=== PATIENT | male | born 1935 | race Caucasian/White ===

== ENCOUNTER 2016-06-25 05:52 | Emergency (ER) | payer BC, MEDICARE ==
[~2016-06-25] VITALS: Ht 180.3 cm; Wt 82.6 kg
[~2016-06-25 05:52] MED LIST: /QUIN20TA OR; ASPI81TA31 OR; ASPI81TA83 OR; CEFT500T OR; LEVO25TA2 OR; NIFE30TA2 OR; PAIN325T OR; Pradaxa OR; TERA10CA3 OR
[2016-06-25] MEDS ORDERED: LEVOPOW21 PO (06:26)
[2016-06-25] MEDS ORDERED: QUIN40TA5 PO (06:26)
[2016-06-25] MEDS ORDERED: TERA2CAP3 PO (06:26)
[2016-06-25 07:04] LABS: MICROSCOPIC INDICATED? MAN YES (NO)
[2016-06-25 07:05] LABS: BASO % 0.1 % (0.0-1.0); EOS # 0.1 K/mm3 (0.0-0.50); EOS % 1.1 % (0.0-3.0); LARGE UNSTAINED CELL # 0.1 K/mm3 (0.0-0.4); LARGE UNSTAINED CELL % 1.5 % (0.0-4.0); LYMPH # 0.9 K/mm3 (1.5-4.5); LYMPH % 14.4 % (24.0-44.0); MEAN CORPUSCULAR HEMOGLOBIN 30.5 pg (27.0-33.0); MEAN CORPUSCULAR HGB CONC 33.7 g/dl (32.0-36.5); MEAN CORPUSCULAR VOLUME 90.7 fl (80.0-96.0); MONO # 0.4 K/mm3 (0.0-0.8); MONO % 6.1 % (0.0-5.0); NEUTROPHILS # 4.5 K/mm3 (1.8-7.7); NEUTROPHILS % 76.8 % (36.0-66.0); PLATELET COUNT, AUTOMATED 286 k/mm3 (150-450); RED CELL DISTRIBUTION WIDTH 13.3 % (11.5-14.5); WHITE BLOOD COUNT 5.8 K/mm3 (4.0-10.0)
[2016-06-25 07:20] LABS: RBC, URINE TNTC /hpf (0-3); SQUAMOUS EPITHELIAL CELL URINE SMALL AMOUNT /hpf (SMALL AMT); WBC, URINE 20-30 /hpf (0-3)
[2016-06-25 07:22] LABS: BACTERIA, URINE MOD AMOUNT; MICROSCOPIC EXAM PERFORMED
[2016-06-25 07:24] LABS: CALCIUM LEVEL 8.6 MG/DL (8.8-10.2); CREATININE FOR GFR 1.36 MG/DL (0.70-1.30); GLOMERULAR FILTRATION RATE 53.5 (>35); POTASSIUM SERUM 4.2 MEQ/L (3.5-5.1)
[2016-06-25 07:39] LABS: HYALINE CAST, URINE NONE SEEN /lpf (0-1)
[2016-06-25] MEDS ORDERED: ISOVUE-370 76% 100ML VIAL (Q9967) As Ordered ONE (07:58)
--- NOTE | 2016-06-25 08:54 | REP ---
Clinical: Flank hematuria and abdominal pain with history of bladder cancer. Technique: Axial contrast enhanced images from the lung bases to the pubic symphysis using 100 ml Isovue 370 intravenous contrast material with precontrast and delayed images of the abdomen as well as coronal and sagittal re-formations. Comparison: 07/07/2011. Findings: The right kidney is severely atrophic demonstrating subcentimeter cysts and mild chronic-appearing hydronephrosis without hydroureter or obvious obstructing calculus. The left kidney demonstrates few simple appearing cysts measuring up to 2.2 cm diameter and lateral cortical scarring consistent with prior partial nephrectomy. There is no evidence for nephroureterolithiasis. Evaluation of the bladder demonstrates mass effect from enlarged prostate gland. Liver, spleen, pancreas, and bilateral adrenal glands are normal. Evidence for prior cholecystectomy. The enteric system is without obstruction or acute inflammatory process and there is evidence for partial prior sigmoid resection. Eventration / ventral hernia is again noted along the midline anterior abdominal wall. No ascites. No obvious adenopathy. No free air. Musculoskeletal structures demonstrate age-related degenerative changes. Vasculature demonstrates atherosclerotic changes without aneurysm or dissection. Lung bases demonstrate chronic changes. Impression: 1. Urinary tract system as described above with atrophic appearance to the right kidney and few left renal cysts up to 2.2 cm as well as evidence for prior partial left nephrectomy. Bladder demonstrates mass effect from enlarged prostate gland. No acute hydroureternephrosis, nephrolithiasis, or perinephric inflammatory stranding. 2. Eventration along the anterior ventral abdominal wall similar to prior examination without bowel obstruction. 3. Further chronic changes as described above. Signed by Chivo Watkins MD 06/25/2016 08:45 A
[2016-06-25] MEDS ORDERED: KEFL500C7 PO (10:06)
[2016-06-25 10:20] VITALS: BP 149/81
--- NOTE | 2016-06-25 20:06 | ECGEPIP ---
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
[2016-07-17] MEDS ORDERED: ATOR40TA PO (10:36)
[2016-07-17] MEDS ORDERED: NIFE30TA7 PO (10:41)
[2016-07-17] MEDS ORDERED: LEVO50TA5 PO (10:41)
[2016-07-17] MEDS ORDERED: PRAD150C PO (10:41)
[2016-07-17] MEDS ORDERED: ASPI1TAB PO (10:41)
== END 2016-06-25 10:25 | disposition home or self-care (01) ==
LOC: M ED 06:58
DX: R31.9 Hematuria, unspecified (principal); I48.91 Unspecified atrial fibrillation; N18.3 Chronic kidney disease, stage 3 (moderate); N28.1 Cyst of kidney, acquired; Z85.51 Personal history of malignant neoplasm of bladder; Z90.5 Acquired absence of kidney; I12.9 Hypertensive chronic kidney disease with stage 1 through stage 4 chronic kidney disease, or unspecified chronic kidney disease; E03.9 Hypothyroidism, unspecified; Z79.01 Long term (current) use of anticoagulants
CPT/HCPCS: 36415; 51703; 74178; 80048; 81000; 85025; 87088; 88108; 93005; 93041; 99285; Q9967

== ENCOUNTER → 2016-07-06 | Outpatient (REF) | payer BC, MEDICARE ==
[~2016-07-06] MED LIST changes: +KEFL500C7 PO; +LEVOPOW21 PO; +QUIN40TA5 PO; +TERA2CAP3 PO
== END ==
LOC: M SMT 16:43
PROVIDERS: ATTEND Nurse Practitioner Family
DX: R31.9 Hematuria, unspecified (principal)

== ENCOUNTER → 2016-07-14 | Outpatient (CLI) | payer BC, MEDICARE ==
[~2016-07-14] MED LIST changes: +ASPI1TAB PO; +ATOR40TA PO; +LEVO50TA5 PO; +NIFE30TA7 PO; +PRAD150C PO
--- NOTE | 2016-07-14 15:52 | REP ---
Chest two views HISTORY: bladder neoplasm Comparison: 07/08/2011 The lungs are clear. The heart is normal in size. The pulmonary vasculature is normal in appearance. The bony structure is intact. IMPRESSION: No acute disease. Signed by Ben Moyer MD 07/14/2016 03:44 P
[2016-07-14 17:13] LABS: INR 1.09
== END ==
LOC: M SMT 15:25
PROVIDERS: ATTEND Specialist
DX: Z01.818 Encounter for other preprocedural examination (principal); Z85.51 Personal history of malignant neoplasm of bladder

== ENCOUNTER → 2016-07-19 | Outpatient (CLI) | payer BC ==
[~2016-07-19] MED LIST changes: +CIPR500T3 PO; +TYLE650T35 PO
--- NOTE | 2016-07-20 07:31 | REP ---
Clinical: Stenosis . Technique: Downey scale and color Doppler evaluation using linear high frequency transducer Findings: Two-dimensional downey scale and color images demonstrate mixed atheromatous plaquing along the common carotid arteries extending to the carotid bulbs and proximal internal carotid arteries (right greater than left). Otherwise normal arterial lumen with laminar flow and no appreciable narrowing. Color Doppler interrogation demonstrates normal arterial wave patterns and velocities with mild spectral broadening. Normal flow direction is appreciated in the bilateral vertebral arteries. RIGHT (cm/s) LEFT (cm/s) ICA peak systolic velocity 40.0 44.2 ICA diastolic velocity 13.3 13.9 ECA peak systolic velocity 48.0 56.4 CCA peak systolic velocity 60.2 54.2 ICA/CCA ratio 0.67 0.82 Impression: No hemodynamically significant areas of narrowing or stenosis appreciated. Based on set standards narrowing falls within the less than 50% range. Signed by Chivo Watkins MD 07/20/2016 07:23 A
== END ==
LOC: M RAD 13:27
PROVIDERS: ATTEND Internal Medicine Cardiovascular Disease
DX: I65.23 Occlusion and stenosis of bilateral carotid arteries (principal)

== ENCOUNTER → 2016-07-21 | Outpatient (REF) | payer BC ==
[2016-07-21 13:25] LABS: ALBUMIN 3.5 GM/DL (3.2-5.2); ALBUMIN/GLOBULIN RATIO 1.17 (1.00-1.93); BILIRUBIN,DIRECT 0.2 MG/DL (0.0-0.2); BILIRUBIN,TOTAL 0.8 MG/DL (0.2-1.0); TOTAL PROTEIN 6.5 GM/DL (6.4-8.2)
== END ==
LOC: M LABDRAWC 11:41
PROVIDERS: ATTEND Internal Medicine Cardiovascular Disease
DX: I25.10 Atherosclerotic heart disease of native coronary artery without angina pectoris (principal)

== ENCOUNTER → 2016-07-25 | Day surgery (SDC) | payer BC ==
[~2016-07-25] VITALS: Ht 179.1 cm; Wt 82.0 kg
[~2016-07-25] MED LIST changes: +ACETAMINOPHEN 650MG ER TAB (TYLENOL ARTHRITIS) PO SCH; +CIPROFLOXACIN 500 MG TAB PO SCH; +CONRAY-60 60% 50ML VIAL (Q9961) As Ordered ONE; +GLYCOPYRROLATE INJ 0.2 MG/ML 2 ML VIAL As Ordered ONE; +LIDOCAINE 1% MDV 20ML VIAL SQ ONE; +LIDOCAINE 2% INJ 100 MG/5 ML SDV (FOR ANES.) As Ordered ONE; +LR 1,000 ML IV ONE; +LR 1,000 ML IV SCH; +METHYLENE BLUE 0.5% (5MG/ML) 10 ML AMP (PROVAYBLUE)(Q9968 PER 1MG) As Ordered ONE; +MIDAZOLAM INJ 2 MG/2 ML VIAL (J2250) As Ordered ONE; +NEOSTIGMINE 1MG/ML 5 ML SYRINGE (J2710) As Ordered ONE; +ONDANSETRON 4MG/2ML VIAL (J2405) As Ordered ONE; +PROPOFOL 200 MG/20 ML VIAL As Ordered ONE; +ROCURONIUM BROMIDE 50 MG/5 ML VIAL As Ordered ONE; +ePHEDrine SULFATE 25 MG/5 ML(5MG/ML) SYRINGE As Ordered ONE; +fentaNYL 100 MCG/2 ML INJECTION (J3010) As Ordered ONE; +mitoMYcin 40 MG VIAL (J9280) INTRAVESIC ONE
[2016-07-25 10:11] LABS: MEAN CORPUSCULAR HEMOGLOBIN 30.8 pg (27.0-33.0); MEAN CORPUSCULAR HGB CONC 34.4 g/dl (32.0-36.5); MEAN CORPUSCULAR VOLUME 89.5 fl (80.0-96.0); RED CELL DISTRIBUTION WIDTH 13.3 % (11.5-14.5); WHITE BLOOD COUNT 6.4 K/mm3 (4.0-10.0)
[2016-07-25] MEDS: fentaNYL 100 MCG/2 ML INJECTION (J3010) IV PRN ×4 (12:00→12:24)
--- NOTE | 2016-07-25 12:20 | REP ---
FLUOROSCOPIC GUIDANCE FOR RETROGRADE PYELOGRAM, 07/25/2016. Clinical history: Bladder carcinoma. Comparison is a CT abdomen and pelvis without and with contrast 06/25/2016. Nine images from C-arm fluoroscopy provided to Dr. Kent of the urology division are reviewed. Images 1 and 2 show ureteroscope and catheter in the proximal ureter. Contrast was injected through the catheter and the initial area with contrast seen within it is at about the S2 level over the right sacral ala. That contrast is diluted by the residual urine, dilated ureter and collecting system. Collecting system and calyces are dilated along with the renal pelvis and ureter down to S2 level in the upper pelvis. Many surgical clips are noted in the right deep pelvis from prior surgical procedures. No filling defects seen within the contrast column. The next seven images are all related to the ureteroscope and catheter into the left ureter and contrast is seen to the UVJ upward to the collecting system. The renal pelvis is not abnormally dilated. The infundibuli and calyces are without abnormal dilatation. There is no hydronephrosis. I see no persistent stricture or filling defect. Fluoroscopy time [id number]-seconds. Signed by David Moeller MD 07/25/2016 03:56 P
[2016-07-25 14:00] VITALS: BP 134/70
--- NOTE | 2016-07-27 13:07 | RO ---
DATE OF PROCEDURE: 07/25/2016 PREOPERATIVE DIAGNOSIS: Bladder tumor. POSTOPERATIVE DIAGNOSIS: Bladder tumor. FINDINGS: 3 cm right trigonal bladder tumor. PROCEDURE: Cystoscopy, plus exam under anesthesia, plus transurethral resection of bladder tumor (TURBT) plus bilateral retrograde pyelogram plus Mitomycin C instillation. SURGEON: Dr. Carlos Kent FULFILLMENT ASSOCIATE: None. ANESTHESIA: General. COMPLICATIONS: None. ESTIMATED BLOOD LOSS: N/A. 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 The patient had a history of a right ureteral distal ureterectomy plus ureteral implantation on the right side due to history of urothelial carcinoma. The patient is here for transurethral resection of bladder tumor. He has consent for cystoscopy, exam under anesthesia and transurethral resection of bladder tumor. PROCEDURE DESCRIPTION: In a patient under general anesthesia in supine modified low lithotomy position, after prepping and draping the area of concern which included the entire genitalia and abdomen, we introduced a cystoscope 21 Ukrainian in diameter with a 30 degrees lens under videoscopic guidance. The fossa navicularis, penile urethra, bulbar urethra, membranous urethra and prostatic urethra were totally normal. The prostatic urethra showed lateral lobes touching. No middle lobe. Both ureteral orifice were seen. The left ureteral orifice was seen in a normal position. The right ureteral orifice was not in a normal position and was not in the trigone. You could see it actually in the right dome of the bladder excreting clear urine. We passed a Pollack catheter and did a retrograde pyelogram of that right kidney. It was hydronephrotic due to refluxing effect. No filling defects in the ureter or in the kidney. We then proceeded to do a left retrograde pyelogram and there was no filling defects in the ureter or kidney. Neither had a normal collecting system. We then proceeded to actually visualize the tumor. It was a 3 cm right trigonal area tumor papillary in origin. There were no other tumors in the bladder. At that moment in time, we actually changed the cystoscope for a resectoscope under normal saline. We resected the tumor out and fulgurated the base of the resection. We then proceeded to actually take the chips of the bladder tumor resection with an Ellik evacuator. Once the hemostasis was cleared, we actually emptied the bladder and took the cystoscope out and placed a #20-Ukrainian Montoya catheter three way, inflated the balloon to 20 mL and plugged the third way. We injected 40 mg of mitomycin C and 20 mL inside the bladder. We actually made the patient in recovery to actually turn around 15 minutes to each side and keep the Mitomycin C inside the bladder for 2 hours. PLAN: The patient will go home today. He will have Mitomycin C instillation in the bladder for 2 hours. Once this is done, we will put the patient into gravity, the Montoya to gravity and if the Montoya returns as clear, he will be going home with antibiotic and pain medication. He will followup at [facility] [place] in about 5 days for a voiding trial. The pathology specimen as bladder tumor resection chips were sent for permanent pathology analysis. Of note, the exam under anesthesia was performed. The prostate has no lumps. There were no three-dimensional masses in the bladder or pedicles.
== END | disposition home or self-care (01) ==
LOC: M SDC 08:35
PROVIDERS: ATTEND Urology
DX: C67.0 Malignant neoplasm of trigone of bladder (principal); I48.91 Unspecified atrial fibrillation; I25.10 Atherosclerotic heart disease of native coronary artery without angina pectoris; I10 Essential (primary) hypertension; Z86.73 Personal history of transient ischemic attack (TIA), and cerebral infarction without residual deficits; E03.9 Hypothyroidism, unspecified; E78.5 Hyperlipidemia, unspecified; Z79.02 Long term (current) use of antithrombotics/antiplatelets; Z79.82 Long term (current) use of aspirin; Z79.899 Other long term (current) drug therapy; Z85.038 Personal history of other malignant neoplasm of large intestine; Z87.891 Personal history of nicotine dependence; Z92.21 Personal history of antineoplastic chemotherapy; Z88.8 Allergy status to other drugs, medicaments and biological substances
CPT/HCPCS: 36415; 51720; 52235; 76000; 85027; 88305; C2617; J0690; J2250; J2405; J2710; J3010; J9280; Q9961; Q9968

== ENCOUNTER → 2016-08-07 | Outpatient (REF) | payer BC ==
[~2016-08-07] MED LIST changes: -ACETAMINOPHEN 650MG ER TAB (TYLENOL ARTHRITIS) PO SCH; -ATOR40TA PO; +ATOR40TA75 PO; -CIPROFLOXACIN 500 MG TAB PO SCH; -CONRAY-60 60% 50ML VIAL (Q9961) As Ordered ONE; -GLYCOPYRROLATE INJ 0.2 MG/ML 2 ML VIAL As Ordered ONE; +KEFL500C17 PO; -KEFL500C7 PO; -LIDOCAINE 1% MDV 20ML VIAL SQ ONE; -LIDOCAINE 2% INJ 100 MG/5 ML SDV (FOR ANES.) As Ordered ONE; -LR 1,000 ML IV ONE; -LR 1,000 ML IV SCH; -METHYLENE BLUE 0.5% (5MG/ML) 10 ML AMP (PROVAYBLUE)(Q9968 PER 1MG) As Ordered ONE; -MIDAZOLAM INJ 2 MG/2 ML VIAL (J2250) As Ordered ONE; -NEOSTIGMINE 1MG/ML 5 ML SYRINGE (J2710) As Ordered ONE; -ONDANSETRON 4MG/2ML VIAL (J2405) As Ordered ONE; -PROPOFOL 200 MG/20 ML VIAL As Ordered ONE; +QUIN1TAB15 PO; -QUIN40TA5 PO; -ROCURONIUM BROMIDE 50 MG/5 ML VIAL As Ordered ONE; -ePHEDrine SULFATE 25 MG/5 ML(5MG/ML) SYRINGE As Ordered ONE; -fentaNYL 100 MCG/2 ML INJECTION (J3010) As Ordered ONE; -mitoMYcin 40 MG VIAL (J9280) INTRAVESIC ONE
== END ==
LOC: M SMT 12:58
PROVIDERS: ATTEND Nurse Practitioner Women's Health
DX: C67.9 Malignant neoplasm of bladder, unspecified (principal)

== ENCOUNTER → 2016-08-14 | Outpatient (REF) | payer BC, MEDICARE ==
[2016-08-14 17:58] LABS: BASO % 0.3 % (0.0-1.0); EOS # 0.4 K/mm3 (0.0-0.50); EOS % 6.4 % (0.0-3.0); LARGE UNSTAINED CELL # 0.1 K/mm3 (0.0-0.4); LARGE UNSTAINED CELL % 1.9 % (0.0-4.0); LYMPH % 15.5 % (24.0-44.0); MEAN CORPUSCULAR HEMOGLOBIN 30.3 pg (27.0-33.0); MEAN CORPUSCULAR HGB CONC 33.6 g/dl (32.0-36.5); MEAN CORPUSCULAR VOLUME 90.4 fl (80.0-96.0); MONO # 0.4 K/mm3 (0.0-0.8); MONO % 6.2 % (0.0-5.0); NEUTROPHILS # 4.5 K/mm3 (1.8-7.7); NEUTROPHILS % 69.7 % (36.0-66.0); PLATELET COUNT, AUTOMATED 357 k/mm3 (150-450); RED CELL DISTRIBUTION WIDTH 12.9 % (11.5-14.5); WHITE BLOOD COUNT 6.5 K/mm3 (4.0-10.0)
[2016-08-14 18:41] LABS: ALBUMIN 3.5 GM/DL (3.2-5.2); ALBUMIN/GLOBULIN RATIO 0.92 (1.00-1.93); BILIRUBIN,TOTAL 0.8 MG/DL (0.2-1.0); CALCIUM LEVEL 8.7 MG/DL (8.8-10.2); CREATININE FOR GFR 1.25 MG/DL (0.70-1.30); FREE T4 1.24 NG/DL (0.76-1.46); POTASSIUM SERUM 4.5 MEQ/L (3.5-5.1); TOTAL PROTEIN 7.3 GM/DL (6.4-8.2)
== END ==
LOC: M SFHCCAPE 07:39
PROVIDERS: ATTEND Physician Assistant
DX: E03.9 Hypothyroidism, unspecified (principal); I10 Essential (primary) hypertension

== ENCOUNTER → 2016-10-23 | Outpatient (REF) | payer BC, MEDICARE | LOC: M SMT 17:13 | PROVIDERS: ATTEND Urology | DX: Z85.51 Personal history of malignant neoplasm of bladder (principal) ==

== ENCOUNTER → 2017-07-09 | Outpatient (REF) | payer BC, MEDICARE | LOC: M SMT 17:04 | DX: Z08 Encounter for follow-up examination after completed treatment for malignant neoplasm (principal); Z85.51 Personal history of malignant neoplasm of bladder | CPT/HCPCS: 88108 ==

== ENCOUNTER → 2017-08-27 | Outpatient (REF) | payer BC, MEDICARE ==
[2017-08-27 17:40] LABS: FREE T4 1.14 NG/DL (0.76-1.46)
== END ==
LOC: M SFHCCAPE 10:46
DX: E03.9 Hypothyroidism, unspecified (principal)
CPT/HCPCS: 84443

== ENCOUNTER → 2017-10-09 | Outpatient (REF) | payer BC, MEDICARE | LOC: M SMT 17:30 | DX: C67.9 Malignant neoplasm of bladder, unspecified (principal) | CPT/HCPCS: 88108 ==

== ENCOUNTER → 2018-07-19 | Outpatient (REF) | payer BC, MEDICARE ==
[~2018-07-19] MED LIST changes: -/QUIN20TA OR; +ACCU1TAB2 OR; -ASPI1TAB PO; +ASPI81TA26 PO; -PRAD150C PO; +PRAD150C6 PO; -QUIN1TAB15 PO; +QUIN1TAB4 PO
== END ==
LOC: M SMT 12:49
PROVIDERS: ATTEND Urology
DX: Z85.51 Personal history of malignant neoplasm of bladder (principal)

== ENCOUNTER → 2019-07-23 | Outpatient (REF) | payer BC, MEDICARE ==
[~2019-07-23] MED LIST changes: +NIFE1TAB52 PO; -NIFE30TA7 PO
[2019-07-23 19:00] LABS: AMORPHOUS SEDIMENT LARGE (NEGATIVE); APPEARANCE, URINE TURBID (CLEAR); BACTERIA, URINE AUTO NEGATIVE (NEGATIVE); BILIRUBIN, URINE AUTO NEGATIVE (NEGATIVE); BLOOD, URINE BLOOD 1+ (NEGATIVE); COLOR, URINE YELLOW (YELLOW); GLUCOSE, URINE (UA) AUTO NEGATIVE (NEGATIVE); KETONE, URINE AUTO NEGATIVE (NEGATIVE); LEUKOCYTE ESTERASE, URINE AUTO TRACE (NEGATIVE); MUCUS, URINE SMALL (NEGATIVE); NITRITE, URINE AUTO NEGATIVE (NEGATIVE); PROTEIN, URINE AUTO NEGATIVE (NEGATIVE); RBC, URINE AUTO 0 /HPF (0-3); SPECIFIC GRAVITY URINE AUTO 1.023 (1.002-1.035); SQUAMOUS EPITHELIAL CELL UR AU 8 /HPF (0-6); UROBILINOGEN, URINE AUTO 0.2 mg/dL (0.0-2.0); WBC, URINE AUTO 0 /HPF (0-3)
== END ==
LOC: M SMT 16:45
PROVIDERS: ATTEND Nurse Practitioner Women's Health
DX: R31.0 Gross hematuria (principal)

== ENCOUNTER → 2019-07-30 | Outpatient (REF) | payer BC, MEDICARE ==
[~2019-07-30] MED LIST changes: +ACET650T61 PO; -TYLE650T35 PO
[2019-07-30 15:20] LABS: CALCIUM LEVEL 9.2 MG/DL (8.8-10.2); CREATININE FOR GFR 1.4 MG/DL (0.70-1.30); GLOMERULAR FILTRATION RATE 51.4 (>35); POTASSIUM SERUM 4.7 MEQ/L (3.5-5.1)
[2019-07-30 15:21] LABS: HEMOGLOBIN 14.2 g/dl (13.5-17.5); MEAN CORPUSCULAR HGB CONC 32.3 g/dl (32.0-36.5); MEAN CORPUSCULAR VOLUME 92.8 fl (80.0-96.0); PLATELET COUNT, AUTOMATED 279 10^3/uL (150-450); RED BLOOD COUNT 4.74 10^6/uL (4.30-6.10); WHITE BLOOD COUNT 5.9 10^3/uL (4.0-10.0)
== END ==
LOC: M LABSMT 08:35
PROVIDERS: ATTEND Nurse Practitioner Women's Health
DX: R31.0 Gross hematuria (principal)

== ENCOUNTER → 2019-07-30 | Outpatient (REF) | payer BC, MEDICARE ==
[2019-07-30 15:14] LABS: CALCIUM LEVEL 9.1 MG/DL (8.8-10.2); CHOLESTEROL RISK RATIO 3.205 (<5); CREATININE FOR GFR 1.5 MG/DL (0.70-1.30); GLOMERULAR FILTRATION RATE 47.5 (>35); POTASSIUM SERUM 4.9 MEQ/L (3.5-5.1)
[2019-07-30 15:20] LABS: HEMATOCRIT 44.2 % (42.0-52.0); HEMOGLOBIN 14.2 g/dl (13.5-17.5); MEAN CORPUSCULAR HEMOGLOBIN 29.6 pg (27.0-33.0); MEAN CORPUSCULAR HGB CONC 32.1 g/dl (32.0-36.5); MEAN CORPUSCULAR VOLUME 92.3 fl (80.0-96.0); PLATELET COUNT, AUTOMATED 291 10^3/uL (150-450); RED BLOOD COUNT 4.79 10^6/uL (4.30-6.10); WHITE BLOOD COUNT 6.1 10^3/uL (4.0-10.0)
== END ==
LOC: M LABDRAWC 11:15
PROVIDERS: ATTEND Physician Assistant
DX: I25.10 Atherosclerotic heart disease of native coronary artery without angina pectoris (principal)

== ENCOUNTER → 2019-08-20 | Outpatient (CLI) | payer BC ==
[~2019-08-20] MED LIST changes: +ISOVUE-370 76% 100ML VIAL As Ordered ONE
--- NOTE | 2019-08-20 15:46 | REP ---
REASON: Hematuria and history of bladder cancer. COMPARISON: 06/25/2016. CONTRAST: 100 mL of Isovue 370. There is no change in the lung bases. The patient is status post cholecystectomy. Pre-contrast enhanced portion of the exam shows hepatic and splenic densities to be within normal limits. There is no evidence of nephroureterolithiasis. There is no urinary or bladder calcifications. There are numerable pelvic phleboliths. The contrast-enhanced portion of the exam shows multiple left renal cysts and right renal cysts and although some of the cysts have increased in size, they are otherwise unchanged. Some of the cysts are somewhat more complex than other cysts. There is chronic left renal scarring status quo and the right kidney is markedly atrophic status quo. There are no enhancing hepatic abnormalities.. The spleen and adrenal glands are again seen to be within normal limits. There are two cysts arising from the pancreatic body which have increased slightly in size from the prior exam but are otherwise unchanged. Postop changes seen involving the sigmoid colon status quo. No free fluid or free air is seen in the abdomen or pelvis. There is prostatomegaly and corpora amylacea status quo. There is no significant change in the appearance of the abdominal aorta or periaortic regions. There is chronic calcific atherosclerotic change within the mural thrombus. No definite intra-abdominal or intrapelvic adenopathy has developed. Bone window technique throughout the exam shows the bones to be demineralized with chronic degenerative changes involving the spine, hips, and sacroiliac joints. This appears stable. Delayed imaging through the urinary bladder shows no definite abnormal focal filling defects. There is, however, potential thickening of the mucosal at the level of the left ureterovesical junction difficult to evaluate by CT and without evidence of concomitant hydroureter or hydronephrosis. The atrophic right kidney still exhibits contrast excretion. MIP reformatted 3D imaging shows partial opacification of each ureter likely secondary to peristaltic activity. No definite bladder filling defects are identified. IMPRESSION: There are findings and chronic changes as described above. There is no definite evidence of acute disease. Followup is recommended. Electronically Signed by José Miguel Brownlee DO 08/20/2019 04:11 P
== END ==
LOC: M RAD 09:20
PROVIDERS: ATTEND Nurse Practitioner Women's Health
DX: R31.0 Gross hematuria (principal); Z85.51 Personal history of malignant neoplasm of bladder
CPT/HCPCS: 74178; Q9967

== ENCOUNTER → 2019-09-04 | Outpatient (REF) | payer BC ==
[~2019-09-04] MED LIST changes: -ISOVUE-370 76% 100ML VIAL As Ordered ONE
[2019-10-06 08:29] LABS: HEMATOCRIT 42.9 % (42.0-52.0); HEMOGLOBIN 13.7 g/dl (13.5-17.5); MEAN CORPUSCULAR HEMOGLOBIN 29.8 pg (27.0-33.0); MEAN CORPUSCULAR HGB CONC 31.9 g/dl (32.0-36.5); MEAN CORPUSCULAR VOLUME 93.3 fl (80.0-96.0); PLATELET COUNT, AUTOMATED 287 10^3/uL (150-450); WHITE BLOOD COUNT 7.3 10^3/uL (4.0-10.0)
[2019-10-11 11:25] LABS: BLOOD UREA NITROGEN 19 MG/DL (7-18); CREATININE FOR GFR 1.16 MG/DL (0.70-1.30); GLUCOSE, FASTING 100 MG/DL (70-100)
[2019-10-11 11:26] LABS: CALCIUM LEVEL 8.8 MG/DL (8.8-10.2); CARBON DIOXIDE LEVEL 27 MEQ/L (21-32); CHLORIDE LEVEL 109 MEQ/L (98-107); GLOMERULAR FILTRATION RATE > 60.0 (>35); POTASSIUM SERUM 4.5 MEQ/L (3.5-5.1); SODIUM LEVEL 141 MEQ/L (136-145)
== END ==
LOC: M SFHCCLAY 18:36
PROVIDERS: ATTEND Family Medicine
DX: C67.9 Malignant neoplasm of bladder, unspecified (principal)

== ENCOUNTER 2019-09-10 08:15 | Day surgery (SDC) | payer BC ==
[2019-09-10] MEDS ORDERED: BACTRIM 160MG/800MG DS TAB ONE (08:16)
[2019-09-10] MEDS ORDERED: ceFAZolin 2 GM/D5W 50 ML IV BAG (J0690 PER 500MG) As Ordered ONE (09:11)
[2019-09-10] MEDS ORDERED: propofoL 200 MG/20 ML VIAL As Ordered ONE (09:18)
[2019-09-10] MEDS ORDERED: fentaNYL 250 MCG/5 ML INJECTION (J3010) As Ordered ONE (09:18)
[2019-09-10] MEDS ORDERED: ONDANSETRON 4MG/2ML VIAL As Ordered ONE (09:18)
[2019-09-10] MEDS ORDERED: LIDOCAINE 2% 100MG/5ML SDV (FOR ANES.) As Ordered ONE (09:18)
[2019-09-10] MEDS ORDERED: dexameTHASONE 4 MG/ML 1ML VIAL (J1100 PER 1MG) As Ordered ONE (09:18)
[2019-09-10] MEDS ORDERED: ROCURONIUM BROMIDE 50 MG/5 ML VIAL As Ordered ONE (09:18)
[2019-09-10] MEDS ORDERED: MIDAZOLAM INJ 2MG/2ML VIAL (J2250 PER 1MG) As Ordered ONE (09:18)
[2019-09-10] MEDS ORDERED: SUGAMMADEX SODIUM 500 MG/5 ML VIAL (BRIDION) As Ordered ONE (10:57)
--- NOTE | 2019-11-13 13:02 | RO ---
DATE OF OPERATION: 09/10/2019 PREOPERATIVE DIAGNOSIS: Bladder tumor. POSTOPERATIVE DIAGNOSES: Bladder tumor. PROCEDURE: Transurethral resection of bladder tumor. SURGEON: Dr. Jesus Rose. ANESTHESIA: General. INDICATIONS FOR OPERATION: This is an 83-year-old white male who was found in the office on surveillance cystoscopy to have a tumor recurrence. He was brought to the operating room for resection. DESCRIPTION OF OPERATION: The patient was anesthetized with general anesthesia after being placed on the table in the supine position. He was then placed in the lithotomy position, prepped with Betadine paint, draped in an aseptic manner, and timeout was performed. A 26-Latvian continuous flow resectoscope was then inserted into the meatus and advanced under direct vision with a 30 lens to the bladder. He was found to have bladder tumors on the posterior and right lateral velázquez. These were then resected and fulgurated with the loop element. The rest of the bladder was carefully examined and no further tumor was identified. The bladder was then drained, resectoscope was removed, and the patient was awakened and sent to the recovery room in stable condition, having tolerated the procedure well. HAMILTON
== END 2019-09-10 09:30 | disposition home or self-care (01) ==
LOC: M SDC 08:15
PROVIDERS: ATTEND Urology
DX: C67.4 Malignant neoplasm of posterior wall of bladder (principal); I10 Essential (primary) hypertension; Z86.73 Personal history of transient ischemic attack (TIA), and cerebral infarction without residual deficits; I48.91 Unspecified atrial fibrillation; G47.30 Sleep apnea, unspecified; E78.00 Pure hypercholesterolemia, unspecified; E03.9 Hypothyroidism, unspecified; Z79.899 Other long term (current) drug therapy; I25.10 Atherosclerotic heart disease of native coronary artery without angina pectoris
CPT/HCPCS: 52001; 52224; 88305; J0690; J1100; J2250; J2405; J3010

== ENCOUNTER 2019-09-13 10:44 | Observation (INO) | payer BC ==
[2019-09-13] MEDS ORDERED: ceFAZolin 2 GM/D5W 50 ML IV BAG (J0690 PER 500MG) As Ordered ONE (14:22)
[2019-09-13] MEDS ORDERED: ACETAMINOPHEN 1000MG 100ML IV BTL (OFIRMEV) (J0131 PER 10MG) As Ordered ONE (14:33)
[2019-09-13] MEDS ORDERED: dexameTHASONE 4 MG/ML 1ML VIAL (J1100 PER 1MG) As Ordered ONE (14:33)
[2019-09-13] MEDS ORDERED: LIDOCAINE 2% 100MG/5ML SDV (FOR ANES.) As Ordered ONE (14:33)
[2019-09-13] MEDS ORDERED: ONDANSETRON 4MG/2ML VIAL As Ordered ONE (14:33)
[2019-09-13] MEDS ORDERED: fentaNYL 100 MCG/2 ML INJECTION (J3010) As Ordered ONE (14:33)
[2019-09-13] MEDS ORDERED: propofoL 200 MG/20 ML VIAL As Ordered ONE (14:33)
[2019-09-13] MEDS ORDERED: ROCURONIUM BROMIDE 50 MG/5 ML VIAL As Ordered ONE (14:33)
[2019-09-13] MEDS ORDERED: SUCCINYLCHOLINE 100 MG/5 ML SYRINGE (J0330) As Ordered ONE (14:33)
[2019-10-30 11:55] LABS: INR 1.26; PARTIAL THROMBOPLASTIN TIME 29.3 SECONDS (24.2-38.5)
[2019-10-30 12:07] LABS: APPEARANCE, URINE MANUAL TURBID (CLEAR); BILIRUBIN, URINE MANUAL OBSCURED (NEGATIVE); BLOOD URINE MANUAL POSITIVE (NEGATIVE); COLOR, URINE MANUAL BROWN (YELLOW); GLUCOSE, URINE (UA) MANUAL NEGATIVE (NEGATIVE); KETONE, URINE MANUAL OBSCURED mg/dL (NEGATIVE); LEUKOCYTE ESTERASE, URINE MAN POSITIVE (NEGATIVE); NITRITE, URINE MANUAL OBSCURED (NEGATIVE); PROTEIN, URINE MANUAL 3+ mg/dL (NEGATIVE); UROBILINOGEN, URINE MANUAL OBSCURED mg/dl (NORMAL)
[2019-10-30 12:08] LABS: BACTERIA, URINE SMALL AMOUNT; HYALINE CAST, URINE NONE SEEN /lpf (0-1); RBC, URINE TNTC /hpf (0-3); SQUAMOUS EPITHELIAL CELL URINE NONE SEEN /hpf (SMALL AMT); WBC, URINE 20-30 /hpf (0-3)
[2019-10-30 17:17] LABS: BASO % 0.2 % (0.0-1.0); EOS % 0.7 % (0.0-3.0); HEMATOCRIT 43.4 % (42.0-52.0); HEMOGLOBIN 14.5 g/dl (13.5-17.5); LYMPH # 0.7 10^3/uL (1.5-5.0); LYMPH % 11.7 % (24.0-44.0); MEAN CORPUSCULAR HEMOGLOBIN 30.3 pg (27.0-33.0); MEAN CORPUSCULAR HGB CONC 33.4 g/dl (32.0-36.5); MEAN CORPUSCULAR VOLUME 90.6 fl (80.0-96.0); MONO # 0.5 10^3/uL (0.0-0.8); NEUTROPHILS # 4.4 10^3/uL (1.5-8.5); PLATELET COUNT, AUTOMATED 298 10^3/uL (150-450); RED BLOOD COUNT 4.79 10^6/uL (4.30-6.10); WHITE BLOOD COUNT 5.7 10^3/uL (4.0-10.0)
--- NOTE | 2019-11-13 13:04 | RO ---
DATE OF OPERATION: 09/13/2019 PREOPERATIVE DIAGNOSIS: Clot retention and bladder bleeding. POSTOPERATIVE DIAGNOSIS: Clot retention and bladder bleeding. PROCEDURE: Cystoscopy with evacuation of clots and fulguration of tumor site. SURGEON: Dr. Jesus Rose ANESTHESIA: General. INDICATIONS FOR PROCEDURE: This is an 84-year-old white male who had a bladder tumor resected three days ago. He states that he started bleeding last night after having restarted his blood thinners two days prior. Because of this, he was brought to the operating for evacuation of clots and fulguration. DESCRIPTION OF PROCEDURE: The patient was anesthetized with general anesthesia, placed in the lithotomy position, prepped with Betadine pain, and draped in an aseptic manner. A time-out was then performed. A 22-Yoruba cystoscope was then inserted into the meatus and advanced under direct vision of a 30-degree lens to the bladder, where the patient was found to have numerous clots. These were then evacuated with the [employer] evacuator and a Yonathan syringe. When the clots had been extracted, the tumor sites could be evaluated. He had one active bleeder on the posterior wall tumor site. Both tumor sites were then fulgurated with the Bugbee cautery and irrigation showed the patient had no further bleeding and the fluid in the bladder was clear. The bladder was then drained, cystoscope was removed, and the patient was awakened and sent to the recovery room in stable condition having tolerated the procedure well. HAMILTON
[2019-12-02 20:27] LABS: ALBUMIN 3.4 GM/DL (3.2-5.2); BILIRUBIN,TOTAL 0.8 MG/DL (0.2-1.0); CREATININE FOR GFR 1.37 MG/DL (0.70-1.30); GLOMERULAR FILTRATION RATE 52.7 (>35); POTASSIUM SERUM 4.1 MEQ/L (3.5-5.1); TOTAL PROTEIN 7.1 GM/DL (6.4-8.2)
== END 2019-09-13 21:50 | disposition home or self-care (01) ==
LOC: M ED 10:44 → M MS5PR 15:08
PROVIDERS: ADMIT Urology; ATTEND Urology
DX: N32.89 Other specified disorders of bladder (principal); N99.820 Postprocedural hemorrhage of a genitourinary system organ or structure following a genitourinary system procedure; C67.4 Malignant neoplasm of posterior wall of bladder; I95.1 Orthostatic hypotension; I48.91 Unspecified atrial fibrillation; I10 Essential (primary) hypertension; E07.9 Disorder of thyroid, unspecified; R25.1 Tremor, unspecified; Z79.899 Other long term (current) drug therapy; Z79.01 Long term (current) use of anticoagulants; Z79.82 Long term (current) use of aspirin; Z85.038 Personal history of other malignant neoplasm of large intestine
CPT/HCPCS: 52001; 52224; 80053; 81000; 85025; 85610; 85730; 86850; 86900; 86901; 87086; 96360; 99284; J0131; J0330; J0690; J1100; J2405; J3010; U0002

== ENCOUNTER → 2019-09-29 | Outpatient (REF) | payer BC ==
[2019-09-29 18:01] LABS: FREE T4 1.06 NG/DL (0.76-1.46); THYROID STIMULATING HORMONE 2.44 uIU/ML (0.358-3.740)
== END ==
LOC: M LABDRAWC 10:30
PROVIDERS: ATTEND Physician Assistant
DX: E03.9 Hypothyroidism, unspecified (principal)

== ENCOUNTER → 2020-07-21 | Outpatient (REF) | payer BC, MEDICARE ==
[2020-07-21 16:48] LABS: BASO % 0.2 % (0.0-1.0); EOS # 0.1 10^3/uL (0.0-0.5); EOS % 1.7 % (0.0-3.0); HEMATOCRIT 44.8 % (42.0-52.0); HEMOGLOBIN 14.5 g/dl (13.5-17.5); LYMPH # 1.3 10^3/uL (1.5-5.0); LYMPH % 21.5 % (24.0-44.0); MEAN CORPUSCULAR HEMOGLOBIN 29.8 pg (27.0-33.0); MEAN CORPUSCULAR HGB CONC 32.4 g/dl (32.0-36.5); MEAN CORPUSCULAR VOLUME 92.2 fl (80.0-96.0); MONO # 0.7 10^3/uL (0.0-0.8); MONO % 10.9 % (2.0-8.0); NEUTROPHILS # 3.9 10^3/uL (1.5-8.5); NEUTROPHILS % 65.4 % (36.0-66.0); PLATELET COUNT, AUTOMATED 306 10^3/uL (150-450); RED BLOOD COUNT 4.86 10^6/uL (4.30-6.10)
[2020-07-21 17:11] LABS: ALBUMIN 3.7 GM/DL (3.2-5.2); ALT/SGPT 27 U/L (12-78); BILIRUBIN,TOTAL 1.3 MG/DL (0.2-1.0); BLOOD UREA NITROGEN 23 MG/DL (7-18); CALCIUM LEVEL 9.2 MG/DL (8.8-10.2); CARBON DIOXIDE LEVEL 27 MEQ/L (21-32); CHLORIDE LEVEL 109 MEQ/L (98-107); CHOLESTEROL LEVEL 115 MG/DL (<200); CHOLESTEROL RISK RATIO 2.875 (<5); CREATININE FOR GFR 1.13 MG/DL (0.70-1.30); FREE T4 1.33 NG/DL (0.76-1.46); GLOMERULAR FILTRATION RATE > 60.0 (>35); GLUCOSE, FASTING 101 MG/DL (70-100); HDL CHOLESTEROL 40 MG/DL (>40); LDL CHOLESTEROL 57 MG/DL (<100); NON-HDL-C 75 MG/DL; POTASSIUM SERUM 4.4 MEQ/L (3.5-5.1); SODIUM LEVEL 141 MEQ/L (136-145); TOTAL PROTEIN 6.8 GM/DL (6.4-8.2); TRIGLYCERIDES LEVEL 90 MG/DL (<150)
[2020-07-21 17:50] LABS: APPEARANCE, URINE HAZY (CLEAR); BACTERIA, URINE AUTO NEGATIVE (NEGATIVE); BILIRUBIN, URINE AUTO NEGATIVE (NEGATIVE); BLOOD, URINE BLOOD 1+ (NEGATIVE); COLOR, URINE YELLOW (YELLOW); GLUCOSE, URINE (UA) AUTO NEGATIVE (NEGATIVE); KETONE, URINE AUTO NEGATIVE (NEGATIVE); LEUKOCYTE ESTERASE, URINE AUTO 2+ (NEGATIVE); MUCUS, URINE SMALL (NEGATIVE); NITRITE, URINE AUTO NEGATIVE (NEGATIVE); PROTEIN, URINE AUTO NEGATIVE (NEGATIVE); RBC, URINE AUTO 9 /HPF (0-3); SPECIFIC GRAVITY URINE AUTO 1.016 (1.002-1.035); SQUAMOUS EPITHELIAL CELL UR AU 1 /HPF (0-6); UROBILINOGEN, URINE AUTO 0.2 mg/dL (0.0-2.0); WBC, URINE AUTO 20 /HPF (0-3)
== END ==
LOC: M SFHCCAPE 07:32
PROVIDERS: ATTEND Physician Assistant
DX: E03.9 Hypothyroidism, unspecified (principal); I10 Essential (primary) hypertension; R42 Dizziness and giddiness

== ENCOUNTER → 2020-08-16 | Outpatient (REF) | payer BC, MEDICARE ==
[2020-08-16 16:29] LABS: APPEARANCE, URINE HAZY (CLEAR); BACTERIA, URINE AUTO NEGATIVE (NEGATIVE); BILIRUBIN, URINE AUTO NEGATIVE (NEGATIVE); BLOOD, URINE BLOOD NEGATIVE (NEGATIVE); COLOR, URINE YELLOW (YELLOW); GLUCOSE, URINE (UA) AUTO NEGATIVE (NEGATIVE); KETONE, URINE AUTO NEGATIVE (NEGATIVE); LEUKOCYTE ESTERASE, URINE AUTO 1+ (NEGATIVE); MUCUS, URINE SMALL (NEGATIVE); NITRITE, URINE AUTO NEGATIVE (NEGATIVE); PROTEIN, URINE AUTO NEGATIVE (NEGATIVE); RBC, URINE AUTO 4 /HPF (0-3); SPECIFIC GRAVITY URINE AUTO 1.017 (1.002-1.035); SQUAMOUS EPITHELIAL CELL UR AU 2 /HPF (0-6); UROBILINOGEN, URINE AUTO 0.2 mg/dL (0.0-2.0); WBC, URINE AUTO 17 /HPF (0-3)
== END ==
LOC: M SFHCCAPE 09:21
PROVIDERS: ATTEND Physician Assistant
DX: N39.0 Urinary tract infection, site not specified (principal); R31.9 Hematuria, unspecified

== ENCOUNTER → 2020-09-08 | Outpatient (CLI) | payer BC ==
[~2020-09-08] MED LIST changes: +ISOVUE-370 76% 100ML VIAL As Ordered ONE
--- NOTE | 2020-09-08 10:10 | REPVR ---
PROCEDURE INFORMATION: Exam: CT Head Without And With Contrast Exam date and time: 09/08/2020 9:42 AM Age: 85 years old Clinical indication: Weakness, facial; Additional info: Facial weakness TECHNIQUE: Imaging protocol: Computed tomography of the head without and with intravenous contrast. Radiation optimization: All CT scans at this facility use at least one of these dose optimization techniques: automated exposure control; mA and/or kV adjustment per patient size (includes targeted exams where dose is matched to clinical indication); or iterative reconstruction. Contrast material: ISOVUE 370; Contrast volume: 75 ml; Contrast route: INTRAVENOUS (IV); COMPARISON: No relevant prior studies available. FINDINGS: Tubes, catheters and devices: Metallic beam hardening artifact from right cochlear implant limits evaluation in this region. Brain: There is moderate ill-defined patchy hypodensity within the bilateral cerebral periventricular white matter, consistent with chronic microvascular ischemic changes. There is moderate diffuse cerebral atrophy present, consistent with this patient's age. Cerebral ventricles: The ventricular system demonstrates moderate diffuse compensatory enlargement. Paranasal sinuses: Moderate mucosal thickening is seen in the left sphenoid sinus. Mastoid air cells: Visualized mastoid air cells are well aerated. Bones/joints: Unremarkable. No acute fracture. Soft tissues: Unremarkable. IMPRESSION: 1. No acute infarction, masses or hemorrhage is seen. No acute intracranial abnormality is identified. 2. Diffuse age-related cerebral atrophy and moderate chronic microvascular white matter ischemic changes, without evidence of an acute intracranial abnormality. 3. No abnormal contrast enhancement is seen. 4. Metallic beam hardening artifact from right cochlear implant limits evaluation in this region. Electronically signed by: Riley Stanley On 09/08/2020 10:09:47 AM
== END ==
LOC: M RAD 09:18
PROVIDERS: ATTEND Psychiatry & Neurology Neurology
DX: R29.810 Facial weakness (principal)
CPT/HCPCS: 70470; Q9967

== ENCOUNTER → 2020-09-09 | Outpatient (REF) | payer BC, MEDICARE ==
[~2020-09-09] MED LIST changes: -ISOVUE-370 76% 100ML VIAL As Ordered ONE
[2020-09-09 17:38] LABS: BASO % 0.2 % (0.0-1.0); EOS # 0.1 10^3/uL (0.0-0.5); EOS % 1.5 % (0.0-3.0); HEMOGLOBIN 13.1 g/dl (13.5-17.5); LYMPH # 1.2 10^3/uL (1.5-5.0); LYMPH % 20.1 % (24.0-44.0); MEAN CORPUSCULAR HGB CONC 32.8 g/dl (32.0-36.5); MEAN CORPUSCULAR VOLUME 91.5 fl (80.0-96.0); MONO # 0.6 10^3/uL (0.0-0.8); MONO % 9.9 % (2.0-8.0); NEUTROPHILS % 68.1 % (36.0-66.0); PLATELET COUNT, AUTOMATED 253 10^3/uL (150-450); RED BLOOD COUNT 4.37 10^6/uL (4.30-6.10); WHITE BLOOD COUNT 5.9 10^3/uL (4.0-10.0)
[2020-09-09 17:59] LABS: ALBUMIN 3.5 GM/DL (3.2-5.2); ALT/SGPT 27 U/L (12-78); BILIRUBIN,TOTAL 1.2 MG/DL (0.2-1.0); BLOOD UREA NITROGEN 17 MG/DL (7-18); CALCIUM LEVEL 8.3 MG/DL (8.8-10.2); CARBON DIOXIDE LEVEL 26 MEQ/L (21-32); CHLORIDE LEVEL 110 MEQ/L (98-107); CREATININE FOR GFR 0.94 MG/DL (0.70-1.30); FOLATE 3.7 NG/ML; GLOMERULAR FILTRATION RATE > 60.0 (>35); GLUCOSE, FASTING 89 MG/DL (70-100); POTASSIUM SERUM 4.1 MEQ/L (3.5-5.1); RHEUMATOID FACTOR QUANT < 10.0 IU/ML (<15.0); SODIUM LEVEL 142 MEQ/L (136-145); TOTAL PROTEIN 6.3 GM/DL (6.4-8.2); VITAMIN B12 LEVEL 280 PG/ML
[2020-09-09 18:06] LABS: HEMOGLOBIN A1c 5.6 %
[2020-09-09 18:24] LABS: ERYTHROCYTE SEDIMENTATION RATE 8 mm/hr (0-20)
[2020-09-10 14:36] LABS: ALBUMIN % 58.7 % (55.8-66.1); ALPHA-1-GLOBULIN % 4.6 % (2.9-4.9); ALPHA-1-GLOBULINS 0.29 GM/DL (0.17-0.41); ALPHA-2-GLOBULINS 0.78 GM/DL (0.42-0.99); ALPHA-2-GLOBULINS % 12.4 % (7.1-11.8); BETA-1-GLOBULINS 0.36 GM/DL (0.28-0.60); BETA-1-GLOBULINS % 5.7 % (4.7-7.2); BETA-2-GLOBULINS 0.32 GM/DL (0.19-0.55); BETA-2-GLOBULINS % 5.1 % (3.2-6.5); GAMMA GLOBULIN % 13.5 % (11.1-18.8); GAMMA GLOBULINS 0.85 GM/DL (0.65-1.58)
== END ==
LOC: M LABDRWCV 16:09
PROVIDERS: ATTEND Psychiatry & Neurology Neurology
DX: G62.9 Polyneuropathy, unspecified (principal)

== ENCOUNTER → 2020-09-14 | Outpatient (REF) | payer BC, MEDICARE ==
[2020-09-15 11:54] LABS: DRVV SCREEN 88.3 SEC
[2020-09-15 11:56] LABS: PTT LUPUS TYPE ANTICOAG SCREEN 2.3 (0-1.2)
[2020-09-15 12:04] LABS: DRVV CONFIRM 58.2 SEC; LUPUS CONFIRM RATIO 1.6
[2020-09-15 12:05] LABS: NORMALIZED RATIO 1.44 (0.00-1.20)
[2020-09-17 04:21] LABS: HEXAGONAL PHASE PHOSPHOLIPID 0 sec (0-11)
== END ==
LOC: M LABDRWCV 16:04
PROVIDERS: ATTEND Psychiatry & Neurology Neurology
DX: G62.9 Polyneuropathy, unspecified (principal)

== ENCOUNTER → 2020-09-14 | Outpatient (REF) | payer BC, MEDICARE ==
[2020-09-14 12:28] LABS: AMORPHOUS SEDIMENT SMALL (NEGATIVE); APPEARANCE, URINE CLOUDY (CLEAR); BACTERIA, URINE AUTO 2+ (NEGATIVE); BILIRUBIN, URINE AUTO NEGATIVE (NEGATIVE); BLOOD, URINE BLOOD 1+ (NEGATIVE); COLOR, URINE YELLOW (YELLOW); GLUCOSE, URINE (UA) AUTO NEGATIVE (NEGATIVE); KETONE, URINE AUTO NEGATIVE (NEGATIVE); LEUKOCYTE ESTERASE, URINE AUTO 2+ (NEGATIVE); MUCUS, URINE MODERATE (NEGATIVE); NITRITE, URINE AUTO NEGATIVE (NEGATIVE); PROTEIN, URINE AUTO NEGATIVE (NEGATIVE); RBC, URINE AUTO 9 /HPF (0-3); SPECIFIC GRAVITY URINE AUTO 1.019 (1.002-1.035); SQUAMOUS EPITHELIAL CELL UR AU 10 /HPF (0-6); WBC, URINE AUTO 25 /HPF (0-3)
== END ==
LOC: M SMT 11:18
PROVIDERS: ATTEND Nurse Practitioner Women's Health
DX: N39.0 Urinary tract infection, site not specified (principal)

== ENCOUNTER → 2020-09-30 | Outpatient (REF) | payer BC, MEDICARE | LOC: M SMT 12:52 | PROVIDERS: ATTEND Urology | DX: Z85.51 Personal history of malignant neoplasm of bladder (principal) ==

== ENCOUNTER → 2021-06-15 | Outpatient (REF) | payer BC, MEDICARE ==
[2021-06-15 17:08] LABS: ALBUMIN 3.4 GM/DL (3.2-5.2); BILIRUBIN,TOTAL 0.9 MG/DL (0.2-1.0); CALCIUM LEVEL 8.7 MG/DL (8.8-10.2); CREATININE FOR GFR 1.22 MG/DL (0.70-1.30); FREE T4 1.22 NG/DL (0.76-1.46); POTASSIUM SERUM 4.6 MEQ/L (3.5-5.1); THYROID STIMULATING HORMONE 3.14 uIU/ML (0.358-3.740); TOTAL PROTEIN 6.6 GM/DL (6.4-8.2)
[2021-06-15 17:15] LABS: BASO % 0.3 % (0.0-1.0); EOS # 0.1 10^3/uL (0.0-0.5); EOS % 1.8 % (0.0-3.0); HEMATOCRIT 42.6 % (42.0-52.0); HEMOGLOBIN 14.1 g/dl (13.5-17.5); LYMPH # 1.3 10^3/uL (1.5-5.0); LYMPH % 20.5 % (24.0-44.0); MEAN CORPUSCULAR HEMOGLOBIN 30.6 pg (27.0-33.0); MEAN CORPUSCULAR HGB CONC 33.1 g/dl (32.0-36.5); MEAN CORPUSCULAR VOLUME 92.4 fl (80.0-96.0); MONO # 0.7 10^3/uL (0.0-0.8); MONO % 10.8 % (2.0-8.0); NEUTROPHILS # 4.1 10^3/uL (1.5-8.5); NEUTROPHILS % 66.4 % (36.0-66.0); PLATELET COUNT, AUTOMATED 307 10^3/uL (150-450); RED BLOOD COUNT 4.61 10^6/uL (4.30-6.10); WHITE BLOOD COUNT 6.1 10^3/uL (4.0-10.0)
== END ==
LOC: M SFHCCAPE 09:31
PROVIDERS: ATTEND Physician Assistant
DX: K64.4 Residual hemorrhoidal skin tags (principal); I10 Essential (primary) hypertension

== ENCOUNTER → 2021-10-26 | Outpatient (REF) | payer MEDICARE, BC ==
[2021-10-26 18:23] LABS: CREATININE FOR GFR 1.24 MG/DL (0.70-1.30); GLOMERULAR FILTRATION RATE 58.8 (>35)
== END ==
LOC: M LABDRAWC 17:13
PROVIDERS: ATTEND Psychiatry & Neurology Neurology
DX: I10 Essential (primary) hypertension (principal)

== ENCOUNTER → 2021-11-04 | Outpatient (CLI) | payer BC ==
[~2021-11-04] MED LIST changes: +ISOVUE-370 76% 100ML VIAL As Ordered ONE
== END ==
LOC: M RAD 13:02
PROVIDERS: ATTEND Psychiatry & Neurology Neurology
DX: H54.7 Unspecified visual loss (principal)
CPT/HCPCS: 70460; Q9967

== ENCOUNTER → 2022-08-05 | Outpatient (CLI) | payer BC, MEDICARE ==
[~2022-08-05] MED LIST changes: -ISOVUE-370 76% 100ML VIAL As Ordered ONE
== END ==
LOC: M RAD 12:17
PROVIDERS: ATTEND Student in an Organized Health Care Education/Training Program
DX: M25.512 Pain in left shoulder (principal)